=== PATIENT | female | born 1945 | race Caucasian/White ===

== ENCOUNTER 2023-11-29 14:21 | Outpatient (CLI) | payer MEDICARE, OTHER ==
--- NOTE | 2023-11-29 17:04 | XRAY Report ---
PROCEDURE: Spine Scoliosis Study 1V INDICATIONS: THORACOLUMBAR SCOLIOSIS,MILD TECHNIQUE: Standing AP and lateral views of the thoracolumbar spine. COMPARISON: None. FINDINGS: There is levoconvex curvature of the lower thoracic and lumbar spine centered at at L2 with Domingo angl e of 19 degrees. Mild secondary dextroconvex curvature of the thoracic spine is seen with Domingo angle of 8 degrees. No anomalous vertebral body is seen. There are 12 rib bearing thoracic vertebral bodies. 5 nonrib-juanjose ring lumbar vertebral bodies are present. No acute vertebral body compression fracture is seen. Mild to moderate multilevel degenerative changes are seen in the thoracic and lumbar spine. Moderate degen erative changes are noted in the hips bilaterally. IMPRESSION: Mild scoliotic curvature of the spine with measurements provided above. Reviewed by: Adelso Gamble MD on 11/29/2023 5:02 PM PST Approved by: Adelso Gamble MD on 11/29/2023 5:02 PM PST Station ID: [id number]
--- NOTE | 2023-11-29 17:05 | XRAY Report ---
PROCEDURE: Ribs w/PA Chest 4+V BL INDICATIONS: RIB PAIN TECHNIQUE: 2 views of the ribs were acquired, along with a single view chest. COMPARISON: None. FINDINGS: Surgical changes and devices: None. Bones and chest wall: No acute displaced rib fracture. No suspicious bony lesions. Overlying soft tissues appear unremarkable. Lungs and pleura: No pleural effusions or pneumothorax. Lungs appear clear. Mediastinum: Mediastinal contours appear normal. Heart size is normal. IMPRESSION: No acute displaced rib fracture or pneumothorax. Reviewed by: Adelso Gamble MD on 11/29/2023 5:03 PM PST Approved by: Adelso Gamble MD on 11/29/2023 5:03 PM [facility] Station ID: [id number]
== END 2023-11-29 14:22 | disposition home or self-care (01) ==
LOC: DI.N 14:21
PROVIDERS: ATTEND Internal Medicine
DX: M41.25 Other idiopathic scoliosis, thoracolumbar region (principal); R07.81 Pleurodynia

== ENCOUNTER 2023-12-19 15:11 | Outpatient (CLI) | payer MEDICARE, OTHER ==
--- NOTE | 2023-12-19 15:53 | DEXA Report ---
PROCEDURE: Dexa Spine and/or Hip INDICATIONS: OSTEOPOROSIS TECHNIQUE: Dual energy x-ray absorptiometry (DXA) was performed on a [employer] System. Regions measur ed are the AP Spine, femoral neck, and if needed forearm. COMPARISON: DEXA dated 05/26/2022 FINDINGS: Lumbar Spine: Bone Mineral Density: 0.861 g/cm/cm,T score: -2.7. Previously -2.9 on the study dated 05/26/2022. Left Femoral Neck: Bone Mineral Density: 0.651 g/cm/cm, T score: -2.8. Previously -2.8. Left Hip: Bone Mineral Density: 0.587 g/cm/cm,T score: -3.3. Previously -3.6. (T score greater or equal to -1.0: NORMAL) (T score from -1.1 to -2.4: OSTEOPENIA) (T score less than or equal to -2.5 to: OSTEOPOROSIS) Impression: By WHO criteria, this patient has osteoporosis. Osteoporosis of the lumbar spine. Osteoporosis of the hip. Patients with diagnosis of osteoporosis or osteopenia should have regular bone mineral density assess ment. For those eligible for Medicare, routine testing is allowed once every 2 years. Testing frequ ency can be increased for patients who have rapidly progressing disease or for those who are receivin g medical therapy to restore bone mass. Reviewed by: Rhina Davies MD on 12/19/2023 3:52 PM PDT Approved by: Rhina Davies MD on 12/19/2023 3:52 PM PDT Station ID: [id number]
== END 2023-12-19 15:12 | disposition home or self-care (01) ==
LOC: DI 15:11
PROVIDERS: ATTEND Internal Medicine
DX: M81.0 Age-related osteoporosis without current pathological fracture (principal)

== ENCOUNTER 2024-03-10 07:16 | Outpatient (CLI) | payer MEDICARE, OTHER ==
[2024-03-10 12:11] LABS: BASOPHILS % (AUTO) 0.8 %; EOSINOPHILS # (AUTO) 0.3 10^3/uL (0.0-0.7); HCT - HEMATOCRIT 41.3 % (37.0-47.0); HGB - HEMOGLOBIN 13.6 g/dL (12.0-16.0); LYMPHOCYTES # (AUTO) 1.2 10^3/uL (1.5-3.5); LYMPHOCYTES % (AUTO) 22.4 %; MEAN CORPUSCULAR HEMOGLOBIN 30.6 pg (27.0-31.0); MEAN CORPUSCULAR HGB CONC 32.9 g/dL (32.0-36.0); MEAN CORPUSCULAR VOLUME 92.8 fL (81.0-99.0); MEAN PLATELET VOLUME 8.8 fL (7.9-10.8); MONOCYTES # (AUTO) 0.7 10^3/uL (0.0-1.0); MONOCYTES % (AUTO) 13.5 %; NEUTROPHILS % (AUTO) 58.1 %; PLT - PLATELET COUNT 271 10^3/uL (130-450); RED BLOOD COUNT 4.45 10^6/uL (4.20-5.40); RED CELL DISTRIBUTION WIDTH 12.6 % (12.0-15.0); WHITE BLOOD COUNT 5.2 x10^3/uL (4.8-10.8)
[2024-03-10 12:32] LABS: ALBUMIN/GLOBULIN RATIO 1.5 (1.0-2.2); ALKALINE PHOSPHATASE 50 IU/L (42-121); ALT ALANINE AMINOTRANSFERASE 19 IU/L (10-60); AST ASPARTATE AMINOTRANSFERASE 20 IU/L (10-42); BILIRUBIN,TOTAL 0.6 mg/dL (0.2-1.0); BUN - BLOOD UREA NITROGEN 15 mg/dL (6-20); CALCIUM 9.4 mg/dL (8.5-10.3); CARBON DIOXIDE - CO2 30 mmol/L (21-32); CHLORIDE 101 mmol/L (101-111); CHOL/HDL RATIO 3.7 (<4.4); CHOLESTEROL 215 mg/dL; CREATININE 0.7 mg/dL (0.6-1.3); GFR - MDRD 81 (>89); GLUCOSE 94 mg/dL (74-104); HDL CHOLESTEROL 58 mg/dL; LDL CHOLESTEROL,CALCULATED 134 mg/dL; LDL/HDL RATIO 2.3 (<4.4); SODIUM 136 mmol/L (135-145); TOTAL PROTEIN 6.7 g/dL (6.4-8.9); TRIGLYCERIDES 115 mg/dL (48-352); VLDL CHOLESTEROL 23 mg/dL
[2024-03-10 12:44] LABS: THYROID STIMULATING HORMONE 1.21 uIU/mL (0.34-5.60)
== END 2024-03-10 07:17 | disposition home or self-care (01) ==
LOC: LAB.N 07:16
PROVIDERS: ATTEND Internal Medicine
DX: M81.0 Age-related osteoporosis without current pathological fracture (principal); Z13.220 Encounter for screening for lipoid disorders; E55.9 Vitamin D deficiency, unspecified; K21.9 Gastro-esophageal reflux disease without esophagitis
CPT/HCPCS: 36415; 80053; 80061; 82306; 83721; 83970; 84443; 85025

== ENCOUNTER 2024-06-18 08:00 | Outpatient (CLI) | payer MEDICARE, OTHER | END 2024-06-18 23:59 | disposition home or self-care (01) | LOC: LAB.N 08:00 | PROVIDERS: ATTEND Physician Assistant | DX: U07.1 COVID-19 (principal) ==